=== PATIENT | female | born 1985 | race Caucasian/White ===

== ENCOUNTER 2017-07-27 20:00 | Emergency (ER) | payer OTHER ==
[2017-07-27 20:26] VITALS: BP 150/91
--- NOTE | 2017-07-27 20:33 | UC ---
Complaint Female HPI - HPI Summary HPI Summary: 32 year old female presents with abscess on her left vaginal wall. - History Of Current Complaint Chief Complaint: UCGU Stated Complaint: SORE ON VAGINA Time Seen by Provider: 07/27/17 20:32 Hx Obtained From: Patient Hx Last Menstrual Period: 07/15/17 Onset/Duration: Gradual Onset Timing: Lasting Hours Severity Initially: Severe Severity Currently: Severe Pain Scale Used: 0-10 Numeric - 8 - Allergies/Home Medications Allergies/Adverse Reactions: Allergies Allergy/AdvReac Type Severity Reaction Status Date / Time Citalopram [From Celexa] Allergy Rash Verified 07/27/17 20:27 PMH/Surg Hx/FS Hx/Imm Hx Previously Healthy: Yes - Surgical History Surgical History: Yes - Social History Alcohol Use: Occasionally Substance Use Type: None Smoking Status (MU): Never Smoked Tobacco - Immunization History Most Recent Influenza Vaccination: 08/2013 Most Recent Tetanus Shot: unsure Most Recent Pneumonia Vaccination: never Review of Systems Constitutional: Negative Skin: Negative Eyes: Negative ENT: Negative Respiratory: Negative Cardiovascular: Negative Gastrointestinal: Negative Genitourinary: Other - bartholin cys at 4 pm Motor: Negative Neurovascular: Negative Musculoskeletal: Negative Neurological: Negative Psychological: Negative All Other Systems Reviewed And Are Negative: Yes Physical Exam Triage Information Reviewed: Yes Vital Signs: Initial Vital Signs Temp 36.8 C 07/27/17 20:22 Pulse 76 07/27/17 20:22 Resp 16 07/27/17 20:22 BP 150/91 07/27/17 20:22 Pulse Ox 100 07/27/17 20:22 Vital Signs Reviewed: Yes Eye Exam: Normal ENT Exam: Normal Dental Exam: Normal Neck exam: Normal Neck: Positive: 1 Respiratory Exam: Normal Cardiovascular Exam: Normal Abdominal Exam: Normal Musculoskeletal Exam: Normal Neurological Exam: Normal Psychological Exam: Normal Skin: Positive: Other - bartholin cysts at 4pm Complaint Female Dx - Differential Dx/Diagnosis Provider Diagnoses: bartholin cyst at 4pm Discharge - Discharge Plan Condition: Stable Disposition: HOME Prescriptions: Acetaminop/Codeine 30 MG TAB* [Tylenol/Codeine 30 MG TAB*] 1 tab PO Q8H PRN #9 tab MDD 3 PRN Reason: Pain Cephalexin CAP* [Keflex CAP*] 500 mg PO TID #30 cap Patient Education Materials: Bartholin Cyst (ED) Referrals: No Primary Care Phys,NOPCP [Medical Doctor] -
[2017-07-27] MEDS ORDERED: cefTRIAXone VIAL(*) 1,000 MG VIAL IM ONE (20:53)
[2017-07-27] MEDS ORDERED: Acetaminop/Codeine 30 MG TAB* 1 TAB (300 MG/30 MG) PO ONE (20:54)
[2017-07-27] MEDS ORDERED: Lidocaine 1% MPF* 2 ML VIAL INJ ONE (21:11)
== END 2017-07-27 21:24 | disposition home or self-care (01) ==
LOC: UCEAST 20:00
DX: N75.0 Cyst of Bartholin's gland (principal); Z88.8 Allergy status to other drugs, medicaments and biological substances
CPT/HCPCS: 96372; 99212; A9270-GY; G0463; J0696